=== PATIENT | female | born 1955 | race Native Hawaiian/Other Pacific Islander ===

== ENCOUNTER 2018-08-15 10:44 | Day surgery (SDC) | payer OTHER ==
[2018-08-09 11:10] VITALS: BMI 23.6
[2018-08-15] MEDS ORDERED: Absorbable Gelatin Sponge Size 12-7 ONE (11:44)
--- NOTE | 2018-08-15 11:50 | CP.SDSHP ---
Same Day Surgery H & P - History Proposed Procedure: US guided liver biopsy Pre-Op Diagnosis: Abnormal LFTs - Allergies Allergies: Allergies No Known Allergies Allergy (Verified 08/09/18 11:07) - Physical Exam Mental Status: Alert & Oriented x3 - Impression Impression: Pt with abnormal LFTs referred for liver biopsy. Plan US guided liver biopsy. Informed consent obtained. Pt. Evaluated Today:Candidate for Anesthesia & Procedure: Yes (ASA 3 Malampati 3) - Date & Time Date: 08/15/18 Time: 11:20 Short Stay Discharge - Short Stay Discharge Admitting Diagnosis/Reason for Visit: ABNORMAL RESULTS OF LIVER FUNCTION STUDIES Disposition: HOME/ ROUTINE
--- NOTE | 2018-08-15 11:52 | PCM.SURG1 ---
Surgeon's Initial Post Op Note - Surgeon's Notes Surgeon: Darren Nelson MD Research Executive: NONE Type of Anesthesia: IV Sedation Pre-Operative Diagnosis: Abnormal LFTs Operative Findings: US showed an unremarkable left hepatic lobe Post-Operative Diagnosis: Abnormal LFTs Operation Performed: US guided left liver biopsy. Four 18-g core specimen obtained. Biopsy tract embolized with gelfoam. Specimen/Specimens Removed: 18-g core x 4 Estimated Blood Loss: EBL {In ML}: 1 Blood Products Given: N/A Drains Used: No Drains Post-Op Condition: Good Date of Surgery/Procedure: 08/15/18 Time of Surgery/Procedure: 11:50
[2018-08-15 16:18] VITALS: RESP 18
[2018-08-15 16:22] VITALS: BP 120/66; PULSE 56; O2SAT 100
--- NOTE | 2018-08-17 11:01 | US ---
PROCEDURE: Date of procedure: 08/15/2018 Procedure: 1. Ultrasound-guided core liver biopsy, CPT 64843 2. Ultrasound guidance for biopsy, [address]240 Medications: The patient is sedated by the anesthesiologist. HISTORY: Abnormal LFTs TECHNIQUE: Following informed consent and procedure time-out, the patient was placed supine on bed and limited ultrasound showed a normal appearing left hepatic lobe. After patient abdomen was prepped and draped in the usual sterile fashion and the skin was anesthetized with 2% lidocaine, an 18 gauge core needle was advanced percutaneously under direct ultrasound guidance into the left hepatic lobe. Upon confirmation of needle position, three 18 gauge core specimens were obtained and sent for routine pathology. The biopsy to tract was then embolized with Gelfoam. A post biopsy ultrasound showed no hematoma. A dressing was applied. IMPRESSION: Ultrasound-guided core biopsy left hepatic lobe. There were no immediate complications.
== END 2018-08-15 13:30 | disposition home or self-care (01) ==
LOC: C.SPRAD 10:44
PROVIDERS: ATTEND Radiology Vascular & Interventional Radiology
DX: R94.5 Abnormal results of liver function studies (principal); R74.0 Nonspecific elevation of levels of transaminase and lactic acid dehydrogenase [LDH]; K75.9 Inflammatory liver disease, unspecified